=== PATIENT | male | born 1985 | race Caucasian/White ===

== ENCOUNTER → 2016-07-28 | Outpatient (CLI) | payer MEDICAID ==
[~2016-07-28] MED LIST: AMOXICILLIN500 M2 PO; AUGMENTIN 875 M1 TAB PO; AUGMENTIN 875875 MG PO; CLARITIN10 MG PO; CYCLOBENZAPRINE10 MG PO; CYCLOBENZAPRINE5 M3 PO; MOTRIN800 MG PO; Motrin,Rufen800 MG PO; NAPROSYN500 MG PO; Orphenadrine C100 MG PO; PREDNISONE10 MG PO; ULTRAM50 MG PO; VOLTAREN50 M1 PO
== END | disposition home or self-care (01) ==
LOC: MRI 07-27 13:00
DX: S83.212A Bucket-handle tear of medial meniscus, current injury, left knee, initial encounter (principal); M25.562 Pain in left knee; X58.XXXA Exposure to other specified factors, initial encounter; Y93.89 Activity, other specified; Y92.89 Other specified places as the place of occurrence of the external cause; Y99.8 Other external cause status

== ENCOUNTER → 2016-08-15 | Outpatient (CLI) | payer OTHER ==
[~2016-08-15] MED LIST changes: +MEDI-PATCH WIT1 EACH TP
== END | disposition home or self-care (01) ==
LOC: RESCLI 02:02
DX: I10 Essential (primary) hypertension (principal); S83.512S Sprain of anterior cruciate ligament of left knee, sequela; M25.552 Pain in left hip; G89.29 Other chronic pain; X58.XXXS Exposure to other specified factors, sequela

== ENCOUNTER 2016-08-31 16:25 | Emergency (ER) | payer OTHER ==
[~2016-08-31] VITALS: Ht 180.3 cm; Wt 79.4 kg
[2016-08-31] MEDS ORDERED: PREDNISONE10 MG PO (17:06)
== END 2016-08-31 17:22 | disposition home or self-care (01) ==
LOC: ED 16:25
DX: G89.29 Other chronic pain (principal); M54.2 Cervicalgia; F17.200 Nicotine dependence, unspecified, uncomplicated

== ENCOUNTER 2017-09-11 16:51 | Emergency (ER) | payer SELFPAY ==
[~2017-09-11] VITALS: Ht 180.3 cm; Wt 81.6 kg
[2017-09-11] MEDS ORDERED: NAPROSYN500 MG PO (16:56)
[2017-09-11] MEDS ORDERED: PREDNISONE10 MG PO (17:07)
== END 2017-09-11 17:37 | disposition home or self-care (01) ==
LOC: ED 16:51
DX: M25.562 Pain in left knee (principal); R03.0 Elevated blood-pressure reading, without diagnosis of hypertension; G89.29 Other chronic pain; M54.2 Cervicalgia; Z98.890 Other specified postprocedural states

== ENCOUNTER 2019-03-29 19:10 | Emergency (ER) | payer SELFPAY ==
[~2019-03-29] VITALS: Ht 180.3 cm; Wt 81.6 kg
[2019-03-29 19:49] LABS: BASO # 0.1 10*3/uL (0.0-0.1); BASO % 1.3 % (0.0-1.0); EOS # 0.3 10*3/uL (0.0-0.4); EOS % 3.6 % (1.0-4.0); HEMATOCRIT 45.5 % (42.0-52.0); LYMPH # 3.7 10*3/uL (1.3-4.4); LYMPH % 45.6 % (27.0-41.0); MEAN CELL VOLUME 90.8 fl (80.0-94.0); MEAN CORPUSCULAR HGB 31.9 pg (27.0-31.0); MEAN CORPUSCULAR HGB CONC 35.2 g/dl (33.0-37.0); MEAN PLATELET VOLUME 9.7 fl (9.6-12.3); MONO # 0.5 10*3/uL (0.1-1.0); MONO % 5.6 % (3.0-9.0); NEUT # 3.6 10*3/uL (2.3-7.9); NEUT % 43.8 % (47.0-73.0); PLATELET COUNT AUTOMATED 301 10*3/uL (130-400); RED BLOOD COUNT 5.01 10*6/uL (4.50-5.90); RED CELL DISTRI WIDTH 12.2 % (0-14.5); WHITE BLOOD COUNT 8.2 10*3/uL (4.8-10.8)
[2019-03-29 20:07] LABS: ALBUMIN 4.4 gm/dl (3.1-4.5); ALKALINE PHOSPHATASE 88 U/L (45-117); BUN 10 mg/dl (7-24); CHLORIDE 106 mmol/L (98-107); CREATININE 1.12 mg/dL (0.70-1.30); POTASSIUM 3.3 mmol/L (3.5-5.1); SGOT/AST 31 IU/L (3-35); SGPT/ALT 44 U/L (12-78); SODIUM 139 mmol/L (136-145)
== END 2019-03-29 20:33 | disposition home or self-care (01) ==
LOC: ED 19:10
PROVIDERS: Nurse Practitioner Family
DX: R20.2 Paresthesia of skin (principal); R20.0 Anesthesia of skin; R20.8 Other disturbances of skin sensation; G89.29 Other chronic pain; F17.200 Nicotine dependence, unspecified, uncomplicated; Z91.041 Radiographic dye allergy status; Z79.899 Other long term (current) drug therapy

== ENCOUNTER 2019-04-09 11:51 | Emergency (ER) | payer SELFPAY ==
[~2019-04-09] VITALS: Ht 688.3 cm; Wt 86.2 kg
== END 2019-04-09 12:19 | disposition home or self-care (01) ==
LOC: ED 11:51
DX: S05.02XA Injury of conjunctiva and corneal abrasion without foreign body, left eye, initial encounter (principal); Z91.041 Radiographic dye allergy status; Z79.899 Other long term (current) drug therapy; W50.4XXA Accidental scratch by another person, initial encounter; Y93.89 Activity, other specified; Y92.098 Other place in other non-institutional residence as the place of occurrence of the external cause; Y99.8 Other external cause status

== ENCOUNTER → 2019-05-07 | Outpatient (CLI) | payer SELFPAY | END | disposition home or self-care (01) | LOC: RESCLI 01:03 | DX: I10 Essential (primary) hypertension (principal); G89.29 Other chronic pain; M79.604 Pain in right leg; M79.605 Pain in left leg; Z79.899 Other long term (current) drug therapy; Z88.1 Allergy status to other antibiotic agents ==

== ENCOUNTER 2019-06-07 19:28 | Emergency (ER) | payer SELFPAY ==
[~2019-06-07] VITALS: Ht 180.3 cm; Wt 83.5 kg
[2019-06-07] MEDS ORDERED: PREDNISONE10 MG PO (20:51)
== END 2019-06-07 21:18 | disposition home or self-care (01) ==
LOC: ED 19:28
DX: T78.3XXA Angioneurotic edema, initial encounter (principal); F17.200 Nicotine dependence, unspecified, uncomplicated; Z91.013 Allergy to seafood; Y92.89 Other specified places as the place of occurrence of the external cause